=== PATIENT | male | born 1980 | race Caucasian/White ===

== ENCOUNTER 2017-08-12 10:47 | Day surgery (SDC) | payer OTHER ==
[~2017-08-12 10:47] MED LIST: CRUTCH2 USE; HYDACE5 PO; RXHYDACE PO
== END 2017-08-12 23:53 | disposition home or self-care (01) ==
LOC: RAD 10:47 → CT 12:00 → RAD 23:53
PROVIDERS: Radiology Diagnostic Radiology
PROC: B02BYZZ Computerized Tomography (CT Scan) of Spinal Cord using Other Contrast (ICD-10-PCS; principal; 2017-08-12 13:00)
DX: M48.02 Spinal stenosis, cervical region (principal); M50.123 Cervical disc disorder at C6-C7 level with radiculopathy; M50.30 Other cervical disc degeneration, unspecified cervical region
CPT/HCPCS: 62302; 72126; Q9966

== ENCOUNTER → 2022-04-23 | Outpatient (CLI) | payer OTHER | END | disposition home or self-care (01) | LOC: PLD 08:02 → LAB 08:02 → LAB SHORT 08:02 | DX: Q82.5 Congenital non-neoplastic nevus (principal) | CPT/HCPCS: 88305 ==

== ENCOUNTER → 2024-10-17 | Outpatient (CLI) | payer OTHER ==
[~2024-10-17] MED LIST changes: +Bactrim Ds Tab1 EACH PO; +CEPH500 PO
== END ==
LOC: LAB SHORT 08:40 → LAB 08:40
DX: K13.0 Diseases of lips (principal)
CPT/HCPCS: 87070; 87075; 87077; 87147; 87185; 87186; 88305